=== PATIENT | female | born 2000 | race Caucasian/White ===

== ENCOUNTER 2021-08-24 12:52 | Emergency (ER) | payer OTHER ==
[~2021-08-24] VITALS: Ht 162.6 cm; Wt 73.6 kg
[2021-08-24 12:54] VITALS: BP 132/61
[2021-08-24 14:14] LABS: RSV AMPLIFICATION NEGATIVE (NEGATIVE)
== END 2021-08-24 16:13 | disposition home or self-care (01) ==
LOC: EDBD 12:52 → M ED 12:52
DX: B34.9 Viral infection, unspecified (principal)

== ENCOUNTER 2022-06-15 13:08 | Emergency (ER) | payer OTHER ==
[~2022-06-15] VITALS: Ht 162.6 cm; Wt 74.1 kg
[2022-06-15] MEDS ORDERED: BENZ200C70 PO (15:22)
[2022-06-15] MEDS ORDERED: BENZONATATE 100MG CAPSULE PO ONE (15:25)
[2022-06-15 15:34] VITALS: BP 131/79
== END 2022-06-15 15:37 | disposition home or self-care (01) ==
LOC: M ED 13:08
DX: J06.9 Acute upper respiratory infection, unspecified (principal); R05.9 Cough, unspecified; B34.9 Viral infection, unspecified